=== PATIENT | female | born 1980 | race Hispanic/Latino ===

== ENCOUNTER 2018-01-20 06:11 | Day surgery (SDC) | payer OTHER ==
[2018-01-04 10:37] VITALS: BMI 23.0
[2018-01-20 06:58] LABS: BASO % 0.5 % (0.0-2.0); EOS # 0.3 K/uL (0.0-0.7); EOS % 3.9 % (0.0-4.0); HEMOGLOBIN 13.7 g/dL (12.0-16.0); LYMPH # 2.9 K/uL (1.0-4.3); LYMPH % 36.6 % (20.0-40.0); MEAN CELL VOLUME 92.1 fl (81.0-99.0); MEAN CORPUSCULAR HEMOGLOBIN 31.7 pg (27.0-31.0); MEAN CORPUSCULAR HGB CONC 34.4 g/dL (33.0-37.0); MEAN PLATELET VOLUME 8.2 fl (7.2-11.7); MONO # 0.9 K/uL (0.0-0.8); MONO % 11.4 % (0.0-10.0); NEUT # 3.8 K/uL (1.8-7.0); NEUT % 47.6 % (50.0-75.0); RBC 4.31 Mil/uL (3.80-5.20); RED CELL DISTRIBUTION WIDTH 13.9 % (11.5-14.5)
[2018-01-20] MEDS ORDERED: Lactated Ringer's 1,000 ML IV ONE ×4 (07:00→09:39)
[2018-01-20] MEDS ORDERED: Rocuronium 10 mg/ml (5 ml) ONE ×2 (07:07→09:35)
[2018-01-20] MEDS ORDERED: Midazolam 2 MG/2 ML VIAL ONE (07:07)
[2018-01-20] MEDS ORDERED: Propofol 10 mg/ml Inj (20 ML) ONE (07:07)
[2018-01-20] MEDS ORDERED: Succinylcholine 200 mg/10 ml Inj IV ONE (07:08)
[2018-01-20 07:13] VITALS: RESP 18
[2018-01-20] MEDS ORDERED: Dexamethasone 4 mg/1 ml ONE (08:09)
[2018-01-20] MEDS ORDERED: Neostigmine 1:1000 (1 mg/ml) Inj ONE (08:10)
[2018-01-20] MEDS: Bupivacaine HCl 0.25% PF (30 ml) Inj ONE ×2 (08:18→08:40)
[2018-01-20] MEDS ORDERED: Morphine 1 mg/ml preservative-free Inj(Duramorph) ONE (08:57)
[2018-01-20] MEDS ORDERED: Esmolol 100 mg/10ml Inj IV ONE (09:04)
[2018-01-20] MEDS ORDERED: Oxycodone/Acetaminophen 5/325 mg Tab PO PRN (11:00)
[2018-01-20] MEDS: HYDROmorphone 0.5 mg/0.5 ml ISec IVP PRN ×2 (11:10→12:05)
--- NOTE | 2018-01-20 14:12 | OP ---
PROCEDURE DATE: 01/20/2018 PREOPERATIVE DIAGNOSES: Pelvic pain, dysmenorrhea, dyspareunia, and history of endometriosis. POSTOPERATIVE DIAGNOSES: Pelvic pain, dysmenorrhea, dyspareunia, and history of endometriosis plus stage IV pelvic endometriosis. PROCEDURES PERFORMED: Diagnostic hysteroscopy, da Tiffanie robotic operative laparoscopy, excision of endometriosis, ovariolysis, bilateral ureterolysis, excision of anterior rectal mass, and Dr. Dahl performed a cystoscopy with bilateral ureteral catheterization and injection of dye that he will dictate separately. SURGEON: Domenic Olmos MD CREMATORIUM OPERATOR: Chapin Dahl MD TYPE OF ANESTHESIA: General endotracheal. ANESTHESIA ADMINISTERED BY: Dr. Friedman. ESTIMATED BLOOD LOSS: Minimal. COMPLICATIONS: None. SPECIMENS: Specimens of endometriosis coming from the left iliac parietal wall, left periureteral, peritoneum, left ovarian fossa, anterior cervical, right periureteral, right ovarian fossa, right uterosacral, left uterosacral, and anterior rectal, all sent to Pathology. INDICATIONS FOR THE PROCEDURE: The patient is a 37-year-old female with a long history of severe pelvic pain, dysmenorrhea, endometriosis, and dyspareunia. She underwent two prior surgeries for this disease including a laparotomy, which were all unsuccessful. She also attempted recently medical treatment and was even enrolled in a therapeutic study and she failed. She was counseled with regards to the risks and the benefits of the procedure. The risks being bowel and bladder injury, rectovaginal fistula infection, and she was also counseled of the likelihood of the procedure to ameliorate her symptoms. She understood all the risks and the benefits and she signed the consent and was taken to the OR. DESCRIPTION OF PROCEDURE: After adequate anesthesia was obtained, the patient was placed in the dorsal lithotomy position. All areas prone to pressure were padded very extensively. Extreme care was placed in not overextending or overflexing the patient's hips and at this point, the patient was prepped and draped. A time-out was taken according to standard hospital practice and the procedure was started. Given the extensiveness of the procedure, Dr. Dahl was called in to perform a cystoscopy and placement of stents as extensive pelvic adhesions were expected. He will dictate this part separately. At this point, the speculum was placed in the vagina. The anterior lip of the cervix was grasped. The cervix was gently dilated and a hysteroscope was inserted into the uterine cavity. The cavity appeared to be normal in size. There was no evidence of adenomyosis in the uterine cavity. At this point, the hysteroscope was removed and a Valtchev uterine manipulator was placed in the uterine cavity. After regowning and regloving, attention was on the abdomen where an incision was made in the supraumbilical area. A Veress needle was inserted with great care and after the drop test and checking for proper placement, the abdomen was insufflated. Under direct visualization, three additional ports were inserted in the left upper quadrant, left mid quadrant, and right upper quadrant. The da Tiffanie Xi robot was then brought on to the field and docked. The pelvis and the abdomen were visualized with findings as following. The diaphragm was free of disease. The pelvis revealed significant adhesions, more specifically the cul-de-sac was completely obliterated. The right ovary was severely attached to the posterior aspect of the uterus. The left ovary was attached to the rectum. There were evident signs of endometriosis both of the black, white and inflammatory type, all present in the pelvis. At this point, the da Tiffanie instruments, robotic scissors and robotic grasper were inserted and the procedure was started. Attention was first in the left side of the pelvis where after identifying the ureter on the left pelvic brim, the peritoneum overlying the ureter was identified and progressive dissection was performed very carefully in a step by step fashion, dissecting the ureter and from the peritoneal leaf, lateralizing the ureter and medializing the peritoneum containing endometriosis. The full dissection of the ureter went all the way from the pelvic brim, all the way to the ovarian fossa where the ureter crosses under the uterine artery. Throughout this process, fluorescent technology was used with a firefly technique to continue to identify the ureter and make sure that it was not injured. At this point, the dissection continued across the posterior aspect of the uterus where areas of deep adenomyosis and endometriosis were also identified. A progressive dissection was performed, peeling off all the way down to the posterior aspect of the cervix into the rectovaginal space. The rectovaginal space was then opened up and dissected, the rectum from the posterior aspect of the vagina. At this point, attention was on the right hand side where after elevating the right ovary, the right ureter was identified. An area of endometriosis was identified, both on the under side of the ovary, which was completely excised and on the peritoneal side. The peritoneum was then grasped and entered and the retroperitoneal space was entered. Again utilizing fluorescent technology, the ureter was identified and a progressive dissection was performed extremely carefully by pulling the peritoneum medially and lateralizing the ureter all the way from the pelvic brim, all the way down to caudally, all the way down to the ovarian fossa. A very large area of peritoneum was then progressively dissected off all the way, where the upper margin of the excision being the utero-ovarian ligament and the lower margin being the uterosacral ligament and the medial margin being the medial side of the ovarian fossa. The large area of peritoneum was then excised and sent to Pathology. The incision then extended posteriorly where a large nodule was identified anteriorly on the rectum. This was dissected progressively in a step by step fashion extremely carefully. Most of the nodules was in the perirectal area, which was progressively excised and the perirectal serosa was then excised too in a sharp fashion without causing any terminal damage to the rectum and without damaging integrity of the rectal serosa or muscularis. The sample was sent to Pathology. The posterior aspect of endometriosis affected peritoneum was also excised in the cul-de-sac area, excising a large area of peritoneum containing endometriosis. At this point, the dissection continued on the left hand side, where the area that had been the peritoneum that had been dissected off was fully excised all the way from the pelvic brim with the upper margin of excision being the lower aspect of the utero-ovarian ligament, all the way down to the uterosacral ligament and past the uterosacral ligament into the posterior cul-de-sac on the left hand side. There is large area of peritoneum containing endometriosis, which was sent to Pathology. At this point, the right ovary was identified being severely adherent to the posterior aspect of the uterus. It was progressively dissected off and free from all these adhesions. At this point, it was checked for hemostasis, appeared to be excellent. Integrity of the rectum was checked, appeared to be in perfect condition, and the pelvis was again irrigated. Attention was on the anterior aspect of the uterus where some inflammatory adhesions were identified and taken down. A portion of inflammatory tissue was present on the anterior part of the uterus and it was coagulated using the bipolar coagulation. At this point, an additional lesion of endometriosis was noted at the level of the iliac vessels on the left hand side. The peritoneum overlying the vessels were elevated and dissected off very carefully and the endometriosis containing peritoneum was dissected and sent to Pathology. Both fallopian tubes appeared to be patent, although the left fallopian tube appeared to be slightly enlarged, but not large enough to warrant a salpingectomy. Again, at this point, it was checked for hemostasis and it appeared to be excellent. The instruments were removed. The da Tiffanie robot was undocked. The abdomen was desufflated and the incisions were closed in layers utilizing 2-0 Vicryl and 4-0 Monocryl. At the end of the procedure, all tapes and instrument counts were correct. The patient tolerated the procedure well, was taken to the recovery room in excellent condition. Chapin Dahl MD
[2018-01-20 16:55] VITALS: BP 99/66; PULSE 95; TEMP 98; O2SAT 98
--- NOTE | 2018-01-20 19:10 | OP ---
PROCEDURE DATE: 01/20/2018 PREOPERATIVE DIAGNOSES: Endometriosis, pelvic pain, dysmenorrhea, and dyspareunia. POSTOPERATIVE DIAGNOSES: Endometriosis, pelvic pain, dysmenorrhea, and dyspareunia. PROCEDURE PERFORMED: Cystoscopy with bilateral ureteral catheterization, stenting and injection of IC-Green dye. SURGEON: Chapin Dahl MD VOLUNTEER SERVICES COORDINATOR: Domenic Olmos MD TYPE OF ANESTHESIA: General endotracheal. ESTIMATED BLOOD LOSS: Minimal. COMPLICATIONS: None. INDICATIONS FOR THE PROCEDURE: The patient is a 37-year-old patient with extensive pelvic adhesions, endometriosis and multiple prior surgeries. She was scheduled to undergo a robotic surgery for her endometriosis. At the time of surgery, Dr. Olmos asked to me come in and perform a cystoscopy with bilateral ureteral catheterization and injecting the dye in order to identify the uterus due to the significant difficulty of the procedure. The patient signed the consent for the procedure and was already under anesthesia at the time of the procedure. DESCRIPTION OF PROCEDURE: The patient was already under anesthesia and time out had been already taken. She was prepped and draped. The surgeon was gowned and gloved. A cystoscope was inserted under direct visualization into the bladder, 200 mL of clear saline was inserted into the bladder. A adam cystoscopy was performed revealing absence of tumors or lesions throughout the bladder. Both ureteral ostia were in the normal anatomical position. The left ureter was then catheterized with utilizing a 5-Argentine open-ended catheter, all the way to the distal ureter and 5 mL of IC-Green was then injected into the distal ureter. The catheter was then removed. Similarly on the right ureter was cannulated utilizing a 5-Argentine open-ended catheter, all the way to the distal ureters, 5-mL of IC-Green were injected into the distal ureter. At this point, the catheter was removed from the ureters. The cystoscope was removed and it was replaced by 16-Argentine Meeks. At this point, the procedure was continued by Dr. Olmos, who took over the procedure. Chapin Dahl MD
== END 2018-01-20 15:40 | disposition home or self-care (01) ==
LOC: H.OPSURG 06:11
PROVIDERS: ATTEND Obstetrics & Gynecology Gynecology
DX: R10.2 Pelvic and perineal pain (principal); E78.5 Hyperlipidemia, unspecified; N94.6 Dysmenorrhea, unspecified; N94.10 Unspecified dyspareunia; N73.6 Female pelvic peritoneal adhesions (postinfective); N80.3 Endometriosis of pelvic peritoneum
CPT/HCPCS: 36415; 52332; 58558; 58662; 85025; 86850; 86900; 88305; J0330; J0690; J1100; J1170; J1885; J2001; J2250; J2270; J2704; J2710; J2765; J3010; J7120